=== PATIENT | male | born 1960 | race Caucasian/White ===

== ENCOUNTER 2021-07-17 10:38 | Inpatient (IN) ==
[2021-07-17 11:14] LABS: ABS Eosinophils 0.1 10^3/ul (0-0.6); ABS Monocytes 0.4 10^3/ul (0-0.8); ABS Neutrophils 9.3 10^3/ul (1.5-7.7); Eosinophil % 1.3 %; Hematocrit 48 % (42-52); Hemoglobin 16.4 g/dL (14.0-18.0); Lymphocyte % 9.5 %; Mean Corpuscular HGB Conc 34 g/dL (31-36); Mean Corpuscular Hemoglobin 29 pg (27-31); Mean Corpuscular Volume 85 fL (80-94); Mean Platelet Volume 8.5 fL (7.4-10.4); Platelet Count 291 10^3/uL (150-450); Red Blood Count 5.63 10^6 /uL (4.18-5.48); Red Cell Distribution Width 14 % (10-15); White Blood Count 10.9 10^3/uL (3.5-10.8)
[2021-07-17 11:33] LABS: Troponin I 0.03 ng/mL (<0.03)
[2021-07-17 11:42] LABS: Activated Partial Thrombo Time 28.7 seconds (26.0-38.0); INR 1.01 (0.86-1.15)
[2021-07-17 11:44] LABS: ALT 15 U/L (7-52); AST 14 U/L (13-39); Albumin 4.2 g/dL (3.2-5.2); Albumin/Globulin Ratio 1.6 (1-3); Alkaline Phosphatase 73 U/L (35-149); Anion Gap 7 mmol/L (2-11); Blood Urea Nitrogen 12 mg/dL (6-24); CO2 Carbon Dioxide 27 mmol/L (22-32); Calcium 9.7 mg/dL (8.6-10.3); Chloride 104 mmol/L (101-111); Globulin 2.7 g/dL (2-4); Glucose 221 mg/dL (70-100); Sodium 138 mmol/L (135-145); Total Protein 6.9 g/dL (6.4-8.9); eGFR CKD-EPI 83.7 (>60)
[2021-07-17] MEDS ORDERED: Dextrose 50% Syringe 50 ml 25 GM/50 ML SYRINGE IV PUSH PRN (13:50)
[2021-07-17] MEDS ORDERED: Enoxaparin 40 MG/0.4 ML SYR SUBCUT SCH (14:00)
[2021-07-17 14:36] LABS: Rapid COVID-19 Molecular Undetected (Undetected)
[2021-07-17 14:47] LABS: Troponin I 0.64 ng/mL (<0.03)
[2021-07-17 15:00] LABS: Cholesterol 111 mg/dL; HDL Cholesterol 35.8 mg/dL; Indirect Bilirubin 1.3 mg/dL (0.3-1.0); LDL Cholesterol 48 mg/dL; Magnesium 1.9 mg/dL (1.9-2.7); Triglycerides 135 mg/dL
[2021-07-17 18:05] LABS: Troponin I 3.39 ng/mL (<0.03)
[2021-07-17] MEDS ORDERED: Heparin DRIP 25,000 UNITS BAG 25,000 UNITS/500 ML BAG IV SCH (18:30)
[2021-07-17 18:35] LABS: Activated Partial Thrombo Time 34.6 seconds (26.0-38.0)
[2021-07-17] MEDS: Heparin 5000 UNITS/ML 1 mL VIAL IV SCH (18:35)
[2021-07-17] MEDS: Nitro 2% OINT (Nitroglycerin) 1 INCH/PAK TOPICAL SCH (18:50)
[2021-07-17] MEDS ORDERED: Carvedilol 12.5 MG TAB (NF) PO SCH (21:00)
[2021-07-17 21:50] LABS: Troponin I 7.49 ng/mL (<0.03)
[2021-07-17] MEDS: Insulin GLARGINE 100 un/ml 10 ml VIAL SUBCUT SCH (22:42)
[2021-07-18] MEDS: Nitro 2% OINT (Nitroglycerin) 1 INCH/PAK TOPICAL SCH ×3 (00:24→13:42)
[2021-07-18 01:01] LABS: Troponin I 8.71 ng/mL (<0.03)
[2021-07-18] MEDS: Heparin 5000 UNITS/ML 1 mL VIAL IV SCH (01:18)
[2021-07-18 06:55] LABS: Hematocrit 45 % (42-52); Hemoglobin 15.2 g/dL (14.0-18.0); Mean Corpuscular HGB Conc 34 g/dL (31-36); Mean Corpuscular Hemoglobin 29 pg (27-31); Mean Corpuscular Volume 86 fL (80-94); Mean Platelet Volume 9.1 fL (7.4-10.4); Platelet Count 269 10^3/uL (150-450); Red Cell Distribution Width 14 % (10-15); White Blood Count 9.4 10^3/uL (3.5-10.8)
[2021-07-18 07:00] LABS: Anion Gap 8 mmol/L (2-11); Blood Urea Nitrogen 13 mg/dL (6-24); CO2 Carbon Dioxide 24 mmol/L (22-32); Calcium 9.1 mg/dL (8.6-10.3); Chloride 104 mmol/L (101-111); Glucose 115 mg/dL (70-100); Magnesium 1.7 mg/dL (1.9-2.7); Potassium 3.9 mmol/L (3.5-5.0); Sodium 136 mmol/L (135-145); eGFR CKD-EPI 98.4 (>60)
[2021-07-18 07:14] LABS: Troponin I 8.27 ng/mL (<0.03)
[2021-07-18] MEDS ORDERED: Magnesium Sulfate 2 gm BAG 2 GM/50 ML BAG IVPB ONE (08:55)
[2021-07-18] MEDS: Insulin GLARGINE 100 un/ml 10 ml VIAL SUBCUT SCH ×2 (08:56→20:45)
[2021-07-18] MEDS ORDERED: Perflutren Lipid Microsphere 3 ML VIAL ONE (09:34)
[2021-07-18] MEDS ORDERED: fentaNYL 100 mcg/2 ml 50 MCG/ML VIAL ONE ×2 (11:41→13:27)
[2021-07-18] MEDS ORDERED: Midazolam 5 mg/5 ml VIAL 1 mg/ml 5 ml VIAL (5 mg) ONE (11:41)
[2021-07-18] MEDS ORDERED: Heparin 1,000 UNIT/ML 10 ml (10,000 UNITS) CATHLAB/DIALYSIS ONE ×2 (11:42→13:07)
[2021-07-18] MEDS ORDERED: niCARdipine 0.1MG/ML IVPREMIX 20 MG/200 ML BAG IV ONE (11:42)
[2021-07-18] MEDS ORDERED: Lidocaine 1% VIAL 10 MG/ML VIAL ONE (11:42)
[2021-07-18] MEDS ORDERED: Iohexol 350 (CONTRAST) 200 ML MDV IV ONE ×2 (11:42→13:08)
[2021-07-18] MEDS ORDERED: nitroGLYCERIN DRIP 25,000 MCG/250 ML BTL ONE ×2 (11:42→13:59)
[2021-07-18] MEDS ORDERED: Heparin 2 UNITS/ML 1000 mls 2,000 ML IV ONE (11:42)
[2021-07-18] MEDS ORDERED: Heparin 2 UNITS/ML 1000 mls 1,000 ML IV ONE (12:36)
[2021-07-18] MEDS ORDERED: Prasugrel 10 mg TAB (NF) ONE (12:40)
[2021-07-18] MEDS ORDERED: Eptifibatide IV (Load dose) 2 MG/ML 10 ml VIAL ONE ×2 (13:50→13:51)
[2021-07-18] MEDS ORDERED: Ondansetron 4 mg VIAL 2 MG/ML 2 ml VIAL IV PRN (14:04)
[2021-07-18] MEDS ORDERED: Ondansetron 4 mg VIAL 2 MG/ML 2 ml VIAL ONE (14:15)
[2021-07-18] MEDS ORDERED: nitroGLYCERIN DRIP 25,000 MCG/250 ML BTL IV SCH (15:00)
[2021-07-18] MEDS ORDERED: MAAL SWISH SWAL ONE (15:01)
[2021-07-18] MEDS ORDERED: [UNRECOGNIZED DRUG - OTHER] SWISH SWAL ONE (15:01)
[2021-07-18] MEDS ORDERED: LIDO SWISH SWAL ONE (15:01)
[2021-07-19 05:10] LABS: ABS Eosinophils 0.2 10^3/ul (0-0.6); ABS Lymphocytes 1.7 10^3/ul (1.0-4.8); ABS Neutrophils 6.1 10^3/ul (1.5-7.7); Eosinophil % 1.9 %; Hematocrit 45 % (42-52); Hemoglobin 15.1 g/dL (14.0-18.0); Lymphocyte % 18.9 %; Mean Corpuscular HGB Conc 34 g/dL (31-36); Mean Corpuscular Hemoglobin 29 pg (27-31); Mean Corpuscular Volume 85 fL (80-94); Mean Platelet Volume 8.2 fL (7.4-10.4); Platelet Count 263 10^3/uL (150-450); Red Blood Count 5.25 10^6 /uL (4.18-5.48); Red Cell Distribution Width 14 % (10-15); White Blood Count 8.9 10^3/uL (3.5-10.8)
[2021-07-19 05:33] LABS: Albumin 3.8 g/dL (3.2-5.2); Albumin/Globulin Ratio 1.7 (1-3); Calcium 9.1 mg/dL (8.6-10.3); Globulin 2.2 g/dL (2-4); HDL Cholesterol 32.8 mg/dL; Potassium 3.9 mmol/L (3.5-5.0); Total Bilirubin 2.1 mg/dL (0.2-1.0); eGFR CKD-EPI 99.4 (>60)
[2021-07-19] MEDS: Insulin GLARGINE 100 un/ml 10 ml VIAL SUBCUT SCH ×2 (09:52→21:27)
[2021-07-20] MEDS: Insulin GLARGINE 100 un/ml 10 ml VIAL SUBCUT SCH (08:23)
[2021-07-20] MEDS ORDERED: PRASUGREL 5 MG PO SCH (09:00)
[2021-07-20 12:38] VITALS: BP 94/59
== END 2021-07-20 13:30 | disposition home or self-care (01) | DRG 174 ==
LOC: EDHOLD 10:38 → ED 10:38 → SUATTDRO 13:59 → OBSVTOIN 13:59 → MEDTELE 15:13 → ICU 07-18 14:36 → MEDTELE 07-19 18:36
PROVIDERS: ADMIT Internal Medicine; ATTEND Student in an Organized Health Care Education/Training Program